=== PATIENT | female | born 1970 | race Asian ===

== ENCOUNTER 2020-09-23 11:33 | Outpatient (CLI) | payer OTHER ==
[2020-09-23] MEDS ORDERED: DIATR MEGLU/DIATRIZ SOD 30 ML SOLUTION PO ONE (12:10)
== END 2020-09-23 20:00 | disposition home or self-care (01) ==
LOC: SCT 11:33
DX: R10.30 Lower abdominal pain, unspecified (principal); R19.4 Change in bowel habit; R11.2 Nausea with vomiting, unspecified
CPT/HCPCS: 76376; 74177; Q9964; Q9967